=== PATIENT | male | born 1960 | race Caucasian/White ===

== ENCOUNTER → 2019-02-09 | Outpatient (CLI) | payer OTHER, SELFPAY ==
[2019-02-09 08:45] VITALS: BMI 35.2
--- NOTE | 2019-02-09 08:51 | RAD_ITS ---
STUDY: X-RAY - LEFT SHOULDER REASON FOR EXAM: Bilateral shoulder pain. TECHNIQUE: 3 view(s) of the shoulder. COMPARISON: Radiographs 08/01/2010. FINDINGS: Normal glenohumeral articulation. There is acromioclavicular arthrosis. Normal acromion. Normal humeral head and visualized proximal humerus. The soft tissue structures are unremarkable. Normal visualized pulmonary apex. RAD/Shoulder min 2 Views IMPRESSION: Acromioclavicular arthrosis. Electronically Signed: Romeo Philip MD at 11:19 EDT Tel , Service support ,
--- NOTE | 2019-02-09 08:51 | RAD_ITS ---
STUDY: X-RAY - RIGHT SHOULDER REASON FOR EXAM: Bilateral shoulder pain. TECHNIQUE: 3 view(s) of the shoulder. COMPARISON: None. FINDINGS: Normal glenohumeral articulation. Normal acromioclavicular joint. Normal acromion. Normal humeral head and visualized proximal humerus. The soft tissue structures are unremarkable. Normal visualized pulmonary apex. RAD/Shoulder min 2 Views IMPRESSION: Normal x-ray examination of the right shoulder. Electronically Signed: Romeo Philip MD at 9:29 EDT Tel , Service support ,
== END | disposition home or self-care (01) ==
LOC: HPRAD 08:50
PROVIDERS: Referring Provider Orthopaedic Surgery; Visit Provider Orthopaedic Surgery
DX: M25.512 Pain in left shoulder (principal); M25.511 Pain in right shoulder
CPT/HCPCS: 73030

== ENCOUNTER → 2019-03-14 16:12 | Outpatient (CLI) | payer OTHER, SELFPAY ==
[2019-02-09 08:45] VITALS: BMI 35.2
--- NOTE | 2019-03-14 16:24 | MRI_ITS ---
STUDY: MRI RIGHT SHOULDER REASON FOR EXAM: Right shoulder pain, injury several years ago with recent reinjury. TECHNIQUE: Standardized fat and water weighted pulse sequences were obtained in all 3 orthogonal planes. COMPARISON: Radiographs 02/09/2019. FINDINGS: There is mild supraspinatus tendinosis and a small intrasubstance partial thickness tear of the distal anterior supraspinatus tendon (T2 coronal image 14) measuring 0.9 cm in length. Normal infraspinatus tendon. Normal subscapularis tendon. Normal teres minor tendon. Normal supraspinatus muscle. Normal infraspinatus muscle. Normal subscapularis muscle. Normal teres minor muscle. There is a small glenohumeral joint effusion. Normal humeral head and visualized proximal humerus. There is a tear with nonvisualization of the intracapsular long biceps tendon. There is fraying of the superior labrum (T2 coronal image 11). Normal capsulo- ligamentous complex. There is acromioclavicular arthrosis with an undersurface osteophyte of the distal clavicle abutting the supraspinatus musculotendinous junction (T2 sagittal images 11, 12). There is a Type II morphology (curved), with a neutral orientation. There is no subacromial-subdeltoid bursal fluid. Normal visualized coracohumeral and coracoacromial ligaments. Normal deltoid muscle. Normal trapezius muscle. MRI/Upper Ext Joint Only(Routine) IMPRESSION: Small intrasubstance partial-thickness tear and mild tendinosis of the supraspinatus tendon. Tear of the long biceps tendon. Acromioclavicular arthrosis. Small glenohumeral joint effusion. Electronically Signed: Romeo Philip MD at 10:00 EDT Tel , Service support ,
== END ==
PROVIDERS: Referring Provider Orthopaedic Surgery; Visit Provider Orthopaedic Surgery
DX: S49.91XA Unspecified injury of right shoulder and upper arm, initial encounter (principal); G89.29 Other chronic pain; M25.511 Pain in right shoulder
CPT/HCPCS: 73221

== ENCOUNTER 2019-05-03 05:52 | Day surgery (SDC) | payer OTHER, SELFPAY ==
[2019-04-20 15:28] VITALS: BMI 35.2
--- NOTE | 2019-05-03 06:16 | EKG12_ITS ---
Test Reason : PREOP Blood Pressure : / mmHG Vent. Rate : 073 BPM Atrial Rate : 073 BPM P-R Int : 172 ms QRS Dur : 116 ms QT Int : 392 ms P-R-T Axes : 010 039 031 degrees QTc Int : 431 ms Normal sinus rhythm Normal ECG When compared with ECG of 03-JUL-2002 16:04, No significant change was found Confirmed by EDUARDO CHAPMAN, TON ([id number]), senior editor NYLA BAKER ([id number]) on 05/09/2019 3:12:01 PM Referred By: Marisel Geiger Confirmed By:TON CLARK MD
[2019-05-03 07:03] VITALS: BP 141/95; PULSE 65; RESP 16; TEMP 36.6; O2SAT 98; BMI 35.8
--- NOTE | 2019-05-03 07:15 | HP.PCM_ITS ---
History and Physical I have re-examined the patient. There are no clinical changes since date of exam. Intake Vital Signs 04/20/19 Body Mass Index (BMI) 35.2 Intake Visit Reasons: RIGHT SHOULDER 3W F/U Is patient in pain?: Yes Allergies No Known Allergies Allergy (Verified 04/20/19 15:45) [facility], [facility] Social History (Updated 04/21/19 @ 11:41 by Marisel Geiger DO) Smoking Status: Never smoker HPI RIGHT SHOULDER 3W F/U: Details: Parts of this documentation were recorded by a scribe, this documentation accurately reflects the service provided and the decisions made by me, Marisel Geiger DO 04/20/19 1502. IVÁN MANRIQUEZ is a 59 year old M here today for 3 week F/U on right shoulder. Patient had an MRI and 3 weeks ago he had a right subacromial injection which he sattes was effective for about 1 week and now his pain has returned. Continues to have pain of his superior right shoulder and has limited ROM and some painful popping. Denies numbness, tingling or other associated symptoms. ROS George Reports joint pain, Reports limited joint movement Ortho Exam Right Shoulder Skin/Wound: Yes CDI, No ecchymosis, No erythema Contralateral Normal: Yes Testing: Positive Hawkin's, Neer's, Speed's and TTP Biceps Internal Rotation: L3 No rales rhonchi wheezing, no abdominal pain, not, no audible bruits Assessment & Plan Problems 1. Rotator cuff tear, right M75.101 2. Biceps tendonitis on right M75.21 Plan Spoke with the patient about his options. Since he failed conservative treatment, he is a candidate for surgery. Explained that he will be in a sling for 6 weeks for a RTC repair and biceps tenotomy. Reviewed the pre-operative plans with the patient. Risks and benefits of the procedure were fully explained, including but not limited to infection, neurovascular injury, continued pain, arthritis, stiffness, need for further surgery, re-injury, DVT, PE, general risks of anesthesia, and loss of limb or life. The patient understands all the risks and does wish to proceed with written consent for [facility] arth[facility]opy. Follow up for his 2 week post op appt or sooner if pain, swelling, numbness or associated symptoms, or concerns develop. All questions answered. Patient in agreement of plan. Coding Level of Care Code Off vis,est,level 4 Diagnoses Rotator cuff tear, right M75.101 ??Encounter type: subsequent encounter Biceps tendonitis on right M75.21
[2019-05-03] MEDS: Lactated Ringers 1,000 ML 100 ML IV ×2 (07:32→10:30)
[2019-05-03] MEDS: Cefazolin 2 GM in 0.9% Normal Saline 100 ML IV (08:56)
[2019-05-03] MEDS: Epinephrine (1 mg/ml) 1 MG/ML VIAL (09:31)
[2019-05-03] MEDS: Mupirocin Ointment 22gm Tube 1 APPLIC (10:18)
[2019-05-03 10:43] VITALS: BP 132/90; BP 141/95; PULSE 85; RESP 16; TEMP 36.1; O2SAT 93
--- NOTE | 2019-05-03 10:46 | DCINST_ITS ---
Discharge Diet: No Restrictions - sling at all times unless showering, may use elbow for arom/prom as tolerated, remove dressings and apply bandaids to incisions sites after pod4 and may get incision wet after POD4, call with increased pain, etc; follow up in 2 weeks for suture removal and initiation of PT Discharge Activity: May Not Drive May shower in (days): 1 Ice area for (Minutes): 20 - Every hour while awake. Weight Bearing Status: Weight bearing as tolerated Keep extremity elevated above heart level: Operative Extremity Call your doctor if your incision/area has: Continuous Slow Oozing, Sudden Incr eased Bleeding, Increased Pain/ Swelling, Increased Redness, Foul Smelling Discharge Call your doctor if you observe: Fever of 101 or Higher, Coldness, Increased Pain, Numbness or Tingling, Change in Color, Calf discomfort Allergies/Adverse Reactions: Allergies No Known Allergies Allergy (Verified 05/03/19 07:02) Medications to take at Discharge dzvaivbfbmt-ndqgtfppiyh-zmn C-vito 250 mg-200 mg-30 mg-2.5 mg tablet 1 tab PO DAILY tab 02/09/19 ranitidine 150 mg tablet 150 mg PO DAILY 02/09/19 Multivitamin [Multiple Vitamins] 1 ea PO DAILY 04/28/19 Ondansetron [Zofran] 8 mg PO Q8H PRN PRN #20 tab 05/03/19 Oxycodone HCl/Acetaminophen [Percocet 5/325] 1 - 2 tab PO Q6H PRN PRN 5 Days #28 tab 05/03/19 The following prescriptions were given: Oxycodone HCl/Acetaminophen [Percocet 5/325] 1 - 2 tab PO Q6H PRN PRN 5 Days #28 tab PRN Reason: Pain Transmission Status: Received by [id number] Ondansetron [Zofran] 8 mg PO Q8H PRN PRN #20 tab PRN Reason: Nausea Transmission Status: Received by [id number] Primary Care Physician: Care Physician,No Primary [Primary Care Provider] - Test Results: Test results from this visit will be discussed in further detail at your follow- up appointment, if applicable. Please Follow Up With: Marisel Geiger, DO - [phone]
--- NOTE | 2019-05-03 10:49 | OP.PCM_ITS ---
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 Patient is a 59-year-old male with continued right shoulder pain recalcitrant to operative and nonoperative findings. MRI confirms a biceps tendon tear as well as subacromial impingement as well as rotator cuff tear. Risk benefits and alternatives to surgery discussed the patient. Risks including but not limited blood loss, blood clot, infection, neurovascular, failure procedure, loss of life and loss of limb. Patient is aware would like proceed with right shoulder arthroscopy repair as indicated Operative note Patient seen and examined preop holding area. Right shoulder was marked. Patient brought to the operating placed supine on the operating table. Sign, anesthesia, antibiotics were welt wheeler. The right shoulder was prepped and draped usual sterile fashion all bony promises well-padded SCDs placed on his bilateral lower semi-. We did position patient beachchair positioning senior living through we did recheck his blood pressure which was stable throughout. We then prepped and draped the right shoulder standard technique marked out our bony landmarks and marked our portal placement. We then insufflated the glenohumeral joint for the posterior aspect timeout was performed. We then used a 11 blade to create a posterior portal. Begin a diagnostic arthroscopy. The glenohumeral joint was intact the biceps had torn off the labrum and there was some fraying of the anterior labrum we then created an anterior portal under direct visualization. We then probed the subscap there was 2 linear tears in the intrasubstance of the subscap and the subscap had a positive lift off of the hum erus was shocked posteriorly. The rotator cuff was intact there is some fibrillated changes again on the undersurface of the motor leading edge of the rotator cuff but the footprint itself was intact. We ensured inserted a shaver into the joint we debrided back the loose pieces on the anterior aspect of the labrum where the biceps tendon used to be located we then debrided back any loose pieces of the labral labrum as well. We then moved to our subscap repair. We understated technique burred the footprint we then placed a swivel lock after playing to fiber links through the belly of the subscap and then bringing it over to a swivel lock in standard technique. The moved to the subacromial space. There is extensive bursitis throughout. Created a lateral portal under direct visualization. We use a combination of shaver and ablator to resect the thickened bursa that was throughout. We co-plane the anterior lateral recess aspect of the acromion. I coagulated any bleeders. The rotator cuff was intact. We irrigated the subacromial space with copious muscle sterile saline. The portals were closed with interrupted 4-0 nylon stitches and sterile dressings were applied and a sling was applied to his upper extremity. Patient tolerated procedure well no complication transferred recovery room in stable condition. Please note the patient did receive a preoperative regional block Operative note Next postoperative note Nonweightbearing right upper extremity We will give family pictures in 2 weeks Call with increased pain numbness tingling further issues arise May use elbow and hand as tolerated Discharge instructions given Secure[employer] disclaimer This note was generated with [employer] dictation software. It may contain incorrect words, spelling, and punctuation that were not noted in checking the note before signing.
[2019-05-03 11:00] VITALS: BP 120/77; BP 141/95; PULSE 78; RESP 16; O2SAT 97
[2019-05-03 11:15] VITALS: BP 116/75; BP 141/95; PULSE 78; RESP 16; O2SAT 96
[2019-05-03 11:30] VITALS: BP 114/77; BP 141/95; PULSE 80; RESP 16; TEMP 36; O2SAT 78
[2019-05-03 12:25] VITALS: BP 117/68; BP 141/95; PULSE 75; RESP 18; TEMP 36.1; O2SAT 94
== END 2019-05-03 12:38 | disposition home or self-care (01) ==
LOC: SDC 05:59 → AC 06:00
PROVIDERS: Referring Provider Orthopaedic Surgery; Visit Provider Orthopaedic Surgery
PROC: (CPT 29827; principal; 2019-05-03 09:10)
DX: M75.102 Unspecified rotator cuff tear or rupture of left shoulder, not specified as traumatic (principal); M25.812 Other specified joint disorders, left shoulder; M75.21 Bicipital tendinitis, right shoulder; K21.9 Gastro-esophageal reflux disease without esophagitis
CPT/HCPCS: 29826; 29827; 93005; J7120; J2405

== ENCOUNTER → 2019-07-06 12:02 | Outpatient (CLI) | payer OTHER, SELFPAY ==
[2019-07-06 10:47] VITALS: BMI 35.8
--- NOTE | 2019-07-06 12:03 | RAD_ITS ---
STUDY: X-RAY CHEST REASON FOR EXAM: Male, 59 years old. Right arm swelling. TECHNIQUE: Frontal chest COMPARISON: None. FINDINGS: No apparent pneumothorax, pneumonia, pleural effusion, or edema. Cardiac silhouette, edgard and mediastinal contours are within normal limits. No acute osseous abnormality. No evidence of free air under the diaphragm. RAD/Chest 1 View IMPRESSION: Negative chest radiograph. Electronically Signed: Dane Carter, at 21:50 EST Tel , Service support ,
== END ==
PROVIDERS: Referring Provider Orthopaedic Surgery; Visit Provider Orthopaedic Surgery
DX: M79.601 Pain in right arm (principal); M79.89 Other specified soft tissue disorders
CPT/HCPCS: 71045

== ENCOUNTER → 2019-07-06 13:34 | Outpatient (CLI) | payer OTHER, SELFPAY ==
[2019-07-06 10:47] VITALS: BMI 35.8
--- NOTE | 2019-07-06 13:36 | VDUE_ITS ---
Reason For Study: Swelling Right Proximal Right jugular vein is spontaneous, widely patent, phasic, with no intraluminal echogenicity noted. Right subclavian vein is spontaneous, widely patent, phasic, with no intraluminal echogenicity noted. Right Lower Arm Right radial vein is compressible. Right ulnar vein is compressible. Right Arm Right axillary vein is spontaneous, patent, phasic, competent, compressible and demonstrates augmentation. Right brachial vein is compressible. Right cephalic vein is compressible. Right basilic vein is compressible. Patient Safety Prelim to [place]. Interpretation Summary No evidence for acute deep venous thrombosis[right] upper extremity with patent and compressible cephalic and basilic veins. Ordering Physician: Marisel Geiger Referring Physician: Landon Guadalupe MD Performed By: Babs Melo RVT ?
== END ==
PROVIDERS: Family Provider Family Medicine; PCP Family Medicine; Referring Provider Orthopaedic Surgery; Visit Provider Orthopaedic Surgery
DX: M79.601 Pain in right arm (principal); M79.89 Other specified soft tissue disorders
CPT/HCPCS: 93971

== ENCOUNTER 2021-04-02 20:54 | Emergency (ER) | payer OTHER, SELFPAY ==
[2021-04-02 20:55] VITALS: BP 133/85; PULSE 99; RESP 18; TEMP 36.6; O2SAT 94; BMI 35.9
--- NOTE | 2021-04-02 23:22 | RAD_ITS ---
EXAM: XR Chest, 1 View CLINICAL INDICATION: 61 years old, Male; dyspnea TECHNIQUE: Frontal view of the chest. This report was created using [employer] report generation technology. COMPARISON: Chest x-ray dated 07/06/2019. FINDINGS: Lungs and pleural spaces: Mild infiltrates or atelectasis in the lung bases. No pneumothorax. No effusion. Heart: Unremarkable. Cardiac silhouette not enlarged. Mediastinum: Central airways and mediastinal contour are unremarkable. Bones/joints: Unremarkable. Soft tissues: Unremarkable. RAD/Chest 1 View (Portable) IMPRESSION: Mild infiltrates or atelectasis in the lung bases. ASSESSMENT: ABNORMAL report - There are abnormal findings in this report which may be related or unrelated to the reason for the exam. Electronically Signed: Bertin Gregory MD at 0:00 EDT Tel , Service support ,
--- NOTE | 2021-04-02 23:23 | EX.ED.DYSGE1 ---
HPI History of Present Illness Chief Complaint: Shortness of Breath Detail of Chief Complaint: Concerned that he may have Covid Informant: patient Narrative Narrative: Patient presents to the emergency department with symptoms for the last 6 days. Patient states that he lost taste and smell yesterday. Patient has a friend at work that has Covid and his has Covid. Patient had intermittent low-grade fevers as well as headache and body aches. He did not get the Covid vaccine. Patient's had nausea and diarrhea. Patient has history of asthma. He denies chest pain. He does have slight increase shortness of breath with exertion. Prior similar symptoms: No PFSH PFSH Medical History no medical history Home Medications cgyaszodzxj-nscfgvctvsy-fsv C-vito 250 mg-200 mg-30 mg-2.5 mg tablet 1 tab PO DAILY tab 02/09/19 [History Last Taken Unknown] ranitidine HCl 150 mg tablet 150 mg PO DAILY 02/09/19 [History Last Taken 05/03/19 05:00 150 MG] multivitamin 1 ea PO DAILY 04/28/19 [History Last Taken Unknown] ondansetron HCl 8 mg PO Q8H PRN PRN #20 tab 05/03/19 [Rx Last Taken Unknown] Allergy/AdvReac Type Severity Reaction Status Date / Time No Known Allergies Allergy Verified 04/02/21 20:55 Surgical History no surgical history Social History (Updated 07/28/19 @ 09:[address] Marisel Geiger, ) Smoking Status: Never smoker [facility] ED Constitutional Constitutional ED: Reports systems reviewed and no addt'l complaints, except as documented; Denies body ache(s), change in weight or chills Eyes Eyes: Denies acute decrease in peripheral vision, change in vision, double vision or loss of vision ENT ENT ED: Reports none; Denies ear pain, lip swelling, loss taste/smell, neck pain, otalgia or sore throat Cardiovascular Cardiovascular: Reports none; Denies abdominal pain, chest pain with activity, leg edema, lightheadedness, palpitations, rapid heart rate or syncope Respiratory/Chest Respiratory/Chest: Reports none, cough and dyspnea; Denies change in mental status, dry cough, hemoptysis, shortness of breath at rest or shortness of breath with exertion Gastrointestinal Gastrointestinal: Reports none, diarrhea and nausea; Denies abdominal pain, change in stool character, hematemesis, hematochezia, melena, rectal bleeding or vomiting Genitourinary Genitourinary ED: Reports none; Denies abdominal discomfort, anuria, dysuria, genital pain or polyuria Musculoskeletal Musculoskeletal: Reports none and myalgias; Denies arthralgias, back pain, difficulty walking, extremity pain or muscle weakness Integumentary Reports none; Denies abscess or rash Neurologic Neurologic: Reports none and headache(s); Denies abnormal gait, confusion, focal weakness, frequent falls, loss of vision, numbness, paresthesias, radicular pain, vertigo or weakness Psychiatric Psychiatric: Reports systems reviewed and no addt'l complaints, except as documented and none; Denies behavioral changes, confusion, difficulty concentrating, hallucinations, suicidal ideation, tactile hallucinations or visual hallucinations Endocrine Endocrinology: Denies none, cold intolerance, excessive sweating, fatigue or heat intolerance Hematologic/Lymphatic Hematologic/Lymphatic: Reports none; Denies anemia, easy bleeding or easy bruising Allergic/Immunologic Allergic/Immunologic ED: Denies as per HPI, none, lip swelling, mouth swelling, throat swelling, tongue swelling or hives EXAM Physical Exam Const Vital Signs: 04/02/21 20:55 04/02/21 23:35 04/02/21 23:40 Temperature 97.9 F 97.9 F Temperature Source Temporal Temporal Pulse Rate 99 91 91 Respiratory Rate 18 18 18 Respiratory Effort Short of Breath Blood Pressure 133/85 H 125/89 H 125/89 H Blood Pressure Mean 101 101 101 Pulse Ox 94 100 100 Oxygen Delivery Method Room Air Room Air Room Air Positive well nourished and well developed General Appearance ED: well developed and NAD HEENT Reports TM's clear and moist mucous membranes normocephalic and atraumatic; Negative for trauma or tenderness Tympanic Membrane ED: Yes TM's clear Eyes PERRL and EOMs intact bilaterally General Eye ED: Negative for pale conjunctiva or scleral icterus Neck no lymphadenopathy, supple and no JVD General: Negative for tenderness Chest Wall inspection of chest normal and palpation of chest normal Chest: Negative for tenderness Resp normal respiratory effort and clear to auscultation bilaterally Effort and Inspection: Negative for respiratory distress or pain with movement Auscultation: Negative for rhonchi, wheezes or diminished lung sounds Cardio regular rate, regular rhythm, S1 normal heart sound, S2 normal heart sound and no murmurs Peripheral Pulses: pulses 2+ throughout GI normal to inspection, nondistended, normoactive bowel sounds, soft to palpation, non-tender, non-distended and no masses Back/Spine no CVA tenderness and no thoracic nor lumbar tenderness Extremity normal to inspection General Extremety ED: Negative for edema General Extremity: Negative for edema Neuro oriented x3, CN's II-XII intact bilaterally, no sensory deficits noted and gait normal Sensorium / Orientation: awake, alert, oriented to person, oriented to place and oriented to time Motor Exam: strength 5/5 throughout and strength abnormal Psych mental status grossly normal Skin no rashes or lesions noted and no wounds MDM MDM MDM Narrative Medical decision making narrative: Patient with Covid pneumonia. He does not meet admission criteria. Patient not hypoxic and is in no respiratory distress. We discussed outpatient monoclonal antibody treatment which he is refusing and does not want referred for. Patient is not vaccinated. Patient advised to return if increasing shortness of breath or hypoxemia or condition should worsen anyway. Lab Data Attestation: I reviewed the patient's lab results. Labs: Laboratory Results - last 24 hr 04/02/21 04/02/21 04/02/21 23:37 23:37 23:37 WBC 6.0 RBC 5.62 Hgb 16.8 H Hct 50.0 MCV 89.0 MCH 29.9 MCHC 33.6 RDW Std Deviation 42.7 RDW Coeff of [place] 13.0 Plt Count 211 MPV 9.4 Immature Gran % (Auto) 0.700 Neut % (Auto) 67.0 Lymph % (Auto) 21.2 [place] % (Auto) 10.3 H Eos % (Auto) 0.3 Baso % (Auto) 0.5 Absolute Neuts (auto) 4.0 Absolute Lymphs (auto) 1.27 Nucleated RBC % 0 D-Dimer Quant (PE/DVT) 0.36 Sodium 133 L Potassium 4.3 Chloride 98 Carbon Dioxide 27.0 Anion Gap 8 BUN 27 H Creatinine 1.59 H Estim Creat Clear Calc 54.23 Est GFR (MDRD) Af Amer 57 L Est GFR (MDRD) Non-Af 47 L BUN/Creatinine Ratio 17.0 Glucose 127 H Calcium 8.3 L Radiography Chest X-Ray - ED: 1 View Diagnostic Testing: Clinical Impression(s) from Imaging Studies Chest X-Ray 04/02/21 23:22 IMPRESSION: Mild infiltrates or atelectasis in the lung bases. ASSESSMENT: ABNORMAL report - There are abnormal findings in this report which may be related or unrelated to the reason for the exam. Electronically Signed: Bertin Gregory MD at 0:00 EDT Tel , Service support , 1 view chest x-ray obtained interpreted by myself as increased markings both lower lobes. Radiology in agreement. Discharge Plan Triage Chief Complaint: Shortness of Breath ED Provider: Franky Graves Dx/Rx/DC Orders Clinical Impression: 2019 novel coronavirus-infected pneumonia (NCIP) Instructions: Caring for Someone Who Has COVID-19 Prescriptions: No Action kallknzr-xjqpqlgjxzb-zkf C-Mn 532-535-80-2.5 mg tablet 1 tab PO DAILY RF: 0 ranitidine HCl [Acid Control (ranitidine)] 150 mg tablet 150 mg PO DAILY RF: 0 multivitamin 1 EACH tablet 1 ea PO DAILY RF: 0 ondansetron HCl 8 MG tablet 8 mg PO Q8H PRN PRN (Reason: Nausea) Qty: 20 RF: 0 Primary Care Provider: Landon Guadalupe Referrals: Landon Guadalupe MD [Primary Care Provider] - 5-7 Days Disposition Disposition: Home, Self Care
[2021-04-02 23:35] VITALS: BP 125/89; PULSE 91; RESP 18; O2SAT 100
[2021-04-02 23:40] VITALS: BP 125/89; PULSE 91; RESP 18; TEMP 36.6; O2SAT 100; O2SAT 94
[2021-04-02] MEDS: 0.9% Normal Saline 1,000 ML 1000 ML IV (23:40)
[2021-04-02 23:47] LABS: Absolute Lymphocyte Count 1.27 X10^3/uL (0.83-4.51); Basophil# 0.03 X10^3/uL; Basophil% 0.5 % (0-1); Eosinophil# 0.02 X10^3/uL; Eosinophils% 0.3 % (0-5); Hemoglobin 16.8 g/dL (13.0-16.5); Lymphocyte # 1.27 X10^3/ul (0.83-4.51); Lymphocyte % 21.2 % (19-41); Mean Corp Hgb Conc 33.6 g/dL (32-36); Mean Corpuscular Hgb 29.9 pg (27.0-32.0); Mean Platelet Vol. 9.4 fl (6.2-12.0); Monocyte# 0.62 X10^3/uL; Monocyte% 10.3 % (0-10); NRBC Flagged by Analyzer 0 % (0-5); Neutrophil # 4.02 X10^3/uL (2.7-7.7); Platelet Count 211 K/mm3 (150-450); RBC Distribution Width SD 42.7 fl (35.1-43.9); Red Blood Count 5.62 M/mm3 (4.6-6.2)
[2021-04-02 23:59] LABS: D-Dimer Quantitative (DVT/PE) 0.36 FEU/ug/m (0.27-0.49)
[2021-04-03 00:06] LABS: Anion Gap 8 (5-15); BUN 27 mg/dL (7-18); Calcium,Total 8.3 mg/dL (8.5-10.1); Chloride 98 mmol/L (98-107); Creatinine, Serum 1.59 mg/dL (0.70-1.30); EST Glomerular Filtration Rate 47 mL/min (>60); Est Glom Filt Rate - Afr Amer 57 mL/min (>60); Estimated Creatinine Clearance 54.23 ml/min; Glucose 127 mg/dL (74-106); Potassium 4.3 mmol/L (3.5-5.1); Sodium Level 133 mmol/L (136-145)
[2021-04-03 01:01] VITALS: BP 148/86; PULSE 78; RESP 20; O2SAT 96
== END 2021-04-03 01:02 | disposition home or self-care (01) ==
PROVIDERS: Emergency Provider Emergency Medicine; PCP Family Medicine
DX: U07.1 COVID-19 (principal); J12.82 Pneumonia due to coronavirus disease 2019
CPT/HCPCS: 71045; 80048; 85025; 85379; 87426; 96360; 99282; J7030; A4216

== ENCOUNTER 2021-04-04 15:47 | Outpatient (CLI) | payer OTHER, SELFPAY ==
[2021-04-04] MEDS: 0.9% Saline Lock 10 ML Syringe IV (16:04)
[2021-04-04 16:06] VITALS: BP 125/98; PULSE 120; RESP 24; TEMP 39.3; O2SAT 95; BMI 35.9
--- NOTE | 2021-04-04 16:11 | NURSING ---
unable to pull tylenol for acudose. Pharmacy called to send tylenol for ever.
[2021-04-04] MEDS: Acetaminophen 325 MG Tablet 650 MG PO (16:25)
[2021-04-04 16:45] VITALS: BP 128/76; PULSE 101; RESP 22; TEMP 38.8; O2SAT 94
[2021-04-04 17:45] VITALS: BP 122/73; PULSE 98; RESP 20; TEMP 38.6; O2SAT 94
== END 2021-04-04 17:45 | disposition home or self-care (01) ==
LOC: MS3OUT 15:48 → MS3 15:49
PROVIDERS: PCP Family Medicine; Referring Provider Nurse Practitioner Adult Health; Visit Provider Nurse Practitioner Adult Health
DX: Z23 Encounter for immunization (principal); U07.1 COVID-19
CPT/HCPCS: J7050; M0243; A4216; Q0240

== ENCOUNTER 2021-04-10 11:50 | Emergency (ER) | payer OTHER, SELFPAY ==
[2021-04-10] VITALS (9 sets, daily range): BP systolic 117–128; BP diastolic 74–84; PULSE 95–106; RESP 18–24; TEMP 36.4–37.1; O2SAT 88–94; BMI 34.5
--- NOTE | 2021-04-10 12:32 | EDS_ITS ---
HPI History of Present Illness Chief Complaint: Shortness of Breath Informant: patient and spouse/S.O. Onset/Context/Timing Onset: Weeks Context: gradual Timing: Continuous Current Severity: Mild Maximum Severity: Mild Worsened by: Exertion Relieved by: Nothing Associated Symptoms cough, rhinorrhea, fever and chills Chest Pain: Positive for None Narrative Narrative: 61-year-old male no sniffing past medical history. Previously was on no medications. On March 28 he started having Covid symptoms. He tested positive for around April 02. Last Wednesday he had monoclonal antibody therapy. On Wednesday presented to [facility] he was treated and discharged home. They did not feel he needed home oxygen at the time. Says just been feeling worse he has had intermittent fevers. He is generally weak. He is having diarrhea. He denies any hemoptysis. He denies any vomiting. PE Risk Factors: Negative for Cancer, OCP + Smoking + > 35, Prior DVT or PE, Recent immobilization, Recent surgery and Recent travel Prior similar symptoms: Yes Recent Illness/Hospitalization: No PFSH PFSH Medical History no medical history no medical history Home Medications dexamethasone [Decadron] 6 mg PO DAILY 7 Days #7 tab 04/10/21 [Rx Last Taken Unknown] Allergy/AdvReac Type Severity Reaction Status Date / Time No Known Allergies Allergy Verified 04/02/21 20:55 Social History Smoking Status: Never smoker ROS ROS ED ROS Narrative Fever, cough, shortness of breath, chills and diarrhea. Review of Systems ROS Unobtainable: Denies due to encephalopathy Constitutional Constitutional ED: Reports chills and fever(s) Eyes Eyes: Denies change in vision ENT ENT ED: Denies ear pain or sore throat Cardiovascular Cardiovascular: Denies chest pain Respiratory/Chest Respiratory/Chest: Reports cough and dyspnea Gastrointestinal Gastrointestinal: Reports diarrhea; Denies abdominal pain, nausea or vomiting Genitourinary Genitourinary ED: Denies dysuria Musculoskeletal Musculoskeletal: Reports myalgias Integumentary Denies rash Neurologic Neurologic: Denies headache(s) Psychiatric Psychiatric: Denies depression Endocrine Endocrinology: Denies polyuria Hematologic/Lymphatic Hematologic/Lymphatic: Denies easy bruising Allergic/Immunologic Allergic/Immunologic ED: Denies urticaria EXAM Physical Exam Narrative Exam Narrative: 61-year-old male vital signs stable except hypoxic at 89% on room air. HEENT exam unremarkable. Neck nontender no JVD. Lungs clear to auscultation bilaterally. Heart regular rhythm rate about 105 no murmur. Abdomen soft nontender normal bowel sounds no peritoneal signs. Moving all 4 extremities. Calves nontender no edema. Neurologically patient is awake alert moving all 4 extremities. No focal motor deficits. Const Vital Signs: 04/10/21 11:52 04/10/21 11:56 04/10/21 12:28 Temperature 98.7 F 98.7 F Temperature Source Temporal Temporal Pulse Rate 105 H 105 H Respiratory Rate 24 H 24 H Respiratory Effort Short of Breath Labored Respiratory Depth Normal Respiratory Pattern Normal Blood Pressure 126/83 H 126/83 H Blood Pressure Mean 97 97 Pulse Ox 89 89 Oxygen Delivery Method Room Air Nasal Cannula Nasal Cannula Oxygen Flow Rate (L/min) 2 2 04/10/21 12:56 04/10/21 13:00 04/10/21 13:54 Temperature 98.7 F 97.6 F L Temperature Source Temporal Oral Pulse Rate 96 105 H 106 H Respiratory Rate 18 20 H 20 H Respiratory Effort Respiratory Depth Respiratory Pattern Blood Pressure 117/74 128/83 H 128/83 H Blood Pressure Mean 88 98 98 Pulse Ox 91 93 93 Oxygen Delivery Method Nasal Cannula Nasal Cannula Nasal Cannula Oxygen Flow Rate (L/min) 2 2 2 04/10/21 15:21 Temperature Temperature Source Pulse Rate 95 Respiratory Rate Respiratory Effort Respiratory Depth Respiratory Pattern Blood Pressure 123/81 H Blood Pressure Mean 95 Pulse Ox 92 Oxygen Delivery Method Nasal Cannula Oxygen Flow Rate (L/min) 2 Positive well nourished and well developed; Negative for cachectic, contractures or unkempt General Appearance ED: well developed and NAD; Negative for unkempt, cachectic or contractures Nutritional Appearance: Negative for cachectic HEENT Reports moist mucous membranes atraumatic; Negative for trauma or tenderness Eyes PERRL and EOMs intact bilaterally Neck no lymphadenopathy, supple, no meningeal signs and no JVD General: Negative for tenderness Resp normal respiratory effort and clear to auscultation bilaterally Auscultation: Negative for rales, rhonchi or wheezes Cardio regular rhythm, S1 normal heart sound, S2 normal heart sound and no murmurs Rate: tachycardic GI non-tender, non-distended and no masses Auscultation: normoactive bowel sounds Palpation: soft; Negative for tender, guarding or rebound tenderness present Back/Spine no CVA tenderness and normal to inspection General Back: Negative for CVA tenderness Extremity normal to inspection General Extremety ED: Negative for edema or tenderness General Extremity: Negative for edema Neuro oriented x3 Sensorium / Orientation: alert, oriented to person, oriented to place and tee ented to time; Negative for orientation impaired, confused, lethargic or stuporous Motor Exam: strength 5/5 throughout Psych mental status grossly normal Appearance: Negative for unkempt Attitude: No agitated Mood & Affect: Negative for depressed or tearful Thought Process: normal thought process Skin Lesions: no lesions Rashes: no rashes MDM MDM MDM Narrative Medical decision making narrative: Patient with Covid for last 2 weeks progressively getting worse in spite of outpatient monoclonal antibody therapy. Be given IV Decadron. Screening labs are being obtained. He is hypoxic. Repeat exam patient doing well at 4:05 PM. I did speak to the hospitalist they did not feel that he met criteria to be admitted and did not think he would be a candidate for any specific different treatment at this time. He will be discharged home on Decadron and oxygen therapy and follow-up as an outpatient. Lab Data Attestation: I reviewed the patient's lab results. Lab results narrative: CBC White count 12.4. Hemoglobin 14.5. Electrolytes sodium 133. Gap of 6 normal BUN and creatinine. Glucose 107. Labs: Laboratory Results - last 24 hr 04/10/21 04/10/21 12:40 12:40 WBC 12.4 H RBC 4.82 Hgb 14.5 Hct 41.1 MCV 85.3 MCH 30.1 MCHC 35.3 RDW Std Deviation 39.2 RDW Coeff of [place] 12.6 Plt Count 395 MPV 8.9 Immature Gran % (Auto) 1.000 H Neut % (Auto) 85.2 H Lymph % (Auto) 6.5 L [place] % (Auto) 6.9 Eos % (Auto) 0.2 Baso % (Auto) 0.2 Absolute Neuts (auto) 10.6 H Absolute Lymphs (auto) 0.81 L Nucleated RBC % 0 Sodium 133 L Potassium 3.7 Chloride 100 Carbon Dioxide 27.0 Anion Gap 6 BUN 16 Creatinine 0.92 Estim Creat Clear Calc 93.72 Est GFR (MDRD) Af Amer 109 Est GFR (MDRD) Non-Af 90 BUN/Creatinine Ratio 17.5 Glucose 107 H Calcium 8.7 Radiography Chest X-Ray - ED: 1 View, Read by ED Physician, Right Infiltrate and Left Infiltrate Diagnostic Testing: Clinical Impression(s) from Imaging Studies Chest X-Ray 04/10/21 14:50 IMPRESSION: Progressive bilateral pulmonary infiltrates in the preferential peripheral distribution suggestive of progressive Covid pneumonitis. Electronically Signed: Osvaldo Green MD at 15:16 EDT , Service support , Chest x-ray portable 1 view interpreted by myself and radiologist shows bilateral infiltrates consistent with Covid pneumonitis. Discharge Plan Triage Chief Complaint: Shortness of Breath ED Provider: Arturo Parekh Dx/Rx/DC Orders Clinical Impression: COVID-19, Hypoxia, Diarrhea Instructions: Human Coronaviruses Prescriptions: New dexamethasone [Decadron] 6 mg tablet 6 mg PO DAILY 7 Days Qty: 7 RF: 0 Primary Care Provider: Landon Guadalupe Referrals: Landon Guadalupe MD [Primary Care Provider] - 1 Week if not improving Activity Restrictions/Additional Instructions: Plenty of fluids and rest. Decadron daily which is a steroid which will help decrease inflammation in your lungs. Home oxygen to keep your pulse ox at 92% or better. Follow-up with your doctor if not improving return emergency department if feeling worse. Disposition Disposition: Home, Self Care
[2021-04-10] MEDS: dexAMETHasone 10 MG/ML Vial IV (12:41)
[2021-04-10 12:46] LABS: Absolute Lymphocyte Count 0.81 X10^3/uL (0.83-4.51); Absolute Neutrophil Count 10.6 X10^3/uL (2.0-7.7); Basophil# 0.03 X10^3/uL; Basophil% 0.2 % (0-1); Eosinophil# 0.03 X10^3/uL; Eosinophils% 0.2 % (0-5); Hematocrit 41.1 % (40-54); Hemoglobin 14.5 g/dL (13.0-16.5); Lymphocyte # 0.81 X10^3/ul (0.83-4.51); Lymphocyte % 6.5 % (19-41); Mean Corp Hgb Conc 35.3 g/dL (32-36); Mean Corpuscular Hgb 30.1 pg (27.0-32.0); Mean Corpuscular Volume 85.3 fL (80-94); Mean Platelet Vol. 8.9 fl (6.2-12.0); Monocyte# 0.86 X10^3/uL; Monocyte% 6.9 % (0-10); NRBC Flagged by Analyzer 0 % (0-5); Neutrophil # 10.55 X10^3/uL (2.7-7.7); Neutrophil % 85.2 % (47-70); Platelet Count 395 K/mm3 (150-450); RBC Distribution Width CV 12.6 % (11.6-14.6); RBC Distribution Width SD 39.2 fl (35.1-43.9); Red Blood Count 4.82 M/mm3 (4.6-6.2); White Blood Count 12.4 K/mm3 (4.4-11.0)
[2021-04-10 13:00] LABS: Anion Gap 6 (5-15); BUN 16 mg/dL (7-18); BUN/Creat Ratio 17.5 RATIO (10-20); Calcium,Total 8.7 mg/dL (8.5-10.1); Chloride 100 mmol/L (98-107); Creatinine, Serum 0.92 mg/dL (0.70-1.30); EST Glomerular Filtration Rate 90 mL/min (>60); Est Glom Filt Rate - Afr Amer 109 mL/min (>60); Estimated Creatinine Clearance 93.72 ml/min; Glucose 107 mg/dL (74-106); Potassium 3.7 mmol/L (3.5-5.1); Sodium Level 133 mmol/L (136-145)
--- NOTE | 2021-04-10 14:50 | RAD_ITS ---
STUDY: X-RAY CHEST REASON FOR EXAM: Male, 61 years old. covid TECHNIQUE: Single AP portable view of the chest. COMPARISON: Comparison is made with prior study dated 04/02/2021. FINDINGS: EKG electrodes are seen. Since prior study, there has been a progression of bilateral pulmonary infiltrates in a peripheral pattern suggestive of Covid pneumonitis. There is no demonstrated pleural abnormality. Normal size heart. Normal mediastinum and edgard. Normal visualized pulmonary arteries. Normal visualized aortic arch and descending thoracic aorta. There are degenerative changes of the visualized thoracic spine. Normal visualized ribs, clavicles, and shoulders. There is no demonstrated abnormality of the visualized soft tissue structures of the upper abdomen. RAD/Chest 1 View (Portable) IMPRESSION: Progressive bilateral pulmonary infiltrates in the preferential peripheral distribution suggestive of progressive Covid pneumonitis. Electronically Signed: Osvaldo Green MD at 15:16 EDT , Service support ,
--- NOTE | 2021-04-10 16:47 | ED.RN ---
CONFIRMATION NUMBER FOR OME O2 FROM [facility] [place] [id number]
--- NOTE | 2021-04-11 14:58 | CASEMGMT ---
ED Home oxygen follow-up: Patient states he is doing well, continues to wear oxygen, running around 92-93%. Patient taking meds as prescribed. Patient wanting to change PCP and was pleased with care at [facility] and provided number for [facility]. Patient had no further questions or concerns at this time.
--- NOTE | 2021-04-14 16:26 | CASEMGMT ---
ED Home oxygen follow-up: Patient states he is doing well, continues to wear oxygen, pulse ox running at 97%. He states he is still coughing a bit but getting his strength back. He did have a PCP appt today with and was told to continue to wear his O2 for 2 more weeks. Pt is thankful for the call and denies any further questions.
== END 2021-04-10 17:22 | disposition home or self-care (01) ==
PROVIDERS: Emergency Provider Emergency Medicine; PCP Family Medicine
DX: U07.1 COVID-19 (principal); R09.02 Hypoxemia; R19.7 Diarrhea, unspecified
CPT/HCPCS: 71045; 80048; 85025; 99285; A4216